=== PATIENT | female | born 1935 | race Caucasian/White ===

== ENCOUNTER 2023-09-16 14:37 | Emergency (ER) | payer MEDICARE, SELFPAY ==
[2023-09-16 14:48] VITALS: BP 161/75; PULSE 87; RESP 16; TEMP 37.1; O2SAT 98
[2023-09-16 14:52] VITALS: BP 161/75; PULSE 87; RESP 16; TEMP 37.1; O2SAT 98
--- NOTE | 2023-09-16 15:47 | ED.GENADULT ---
HPI - General Adult General Chief complaint: Ear Stated complaint: Right ear Source: patient and family Mode of arrival: ambulatory Limitations: dementia History of Present Illness HPI narrative: Patient brought in by daughter for right-sided ear exam. Patient's hearing aid on the right side has been signaling feedback for the past few weeks. Daughter indicates that patient has been scratching the ear canal as well on that side. She had an appointment with an meeting coordinator today to further assess the hearing aid. The meeting coordinator noted that her tympanic membrane looked ?tiny? and advised she have further evaluation. Family contacted patient's primary care provider and it sounds like she was referred to ENT. However they were told that she would not be able to get an appointment until later this fall. Patient denies any drainage from the ear. She denies any worsening hearing loss. No fever, chills, sore throat, otalgia, cough or other infectious symptoms. Related Data Home Medications Medication Instructions Recorded Confirmed amlodipine 10 mg tablet 10 mg PO DAILY 01/14/19 09/16/23 levothyroxine 88 mcg tablet 88 mcg PO DAILY 01/14/19 09/16/23 losartan 50 mg tablet 50 mg PO DAILY 01/14/19 09/16/23 omega 3-pet-ykv-fish oil 1,000 mg 1 cap PO DAILY 01/14/19 01/14/19 (120 mg-180 mg) capsule (Fish Oil) calcium 300 mg-D3 25 mcg-magnesium 2 tablet PO HS 09/16/23 09/16/23 66 mg-K2 37.5 mcg-herbal tablet (Alive Calcium-Vitamin D3-K2) clopidogrel 75 mg tablet 75 mg PO DAILY 09/16/23 09/16/23 docusate sodium 50 mg capsule 100 mg PO HS 09/16/23 09/16/23 (Stool Softener) ezetimibe 10 mg tablet 10 mg PO DAILY 09/16/23 09/16/23 hydrochlorothiazide 12.5 mg tablet 12.5 mg PO DAILY 09/16/23 09/16/23 magnesium citrate,mag oxide 250 mg 500 mg PO HS 09/16/23 09/16/23 capsule memantine 10 mg tablet 10 mg PO BID 09/16/23 09/16/23 psyllium husk 0.4 gram capsule 0.8 g PO BID 09/16/23 09/16/23 (Metamucil) sertraline 50 mg tablet 50 mg PO DAILY 09/16/23 09/16/23 Allergies Allergy/AdvReac Type Severity Reaction Status Date / Time No Known Allergies Allergy Verified 09/16/23 14:55 Review of Systems Review of Systems: CONSTITUTIONAL: Denies fever, chills, or sweats. EYES: Denies visual changes, redness, or discharge. ENT: Reports pruritus in the right ear. Reports right-sided hearing aid signaling feedback. Denies rhinorrhea, congestion, sore throat, or otalgia. CARDIOVASCULAR: Denies chest pain, palpitations, or edema. RESPIRATORY: Denies cough or dyspnea. GASTROINTESTINAL: Denies abdominal pain, nausea, vomiting, or diarrhea. GENITOURINARY: Denies dysuria or hematuria. SKIN: Denies rash or itching. MUSCULOSKELETAL: Denies back pain, joint pain, or myalgia. NEUROLOGIC: Denies headache, numbness, dizziness, or weakness. PSYCHIATRIC: Denies anxiety or depression. [facility] Past Medical History Medical History Arthritis Carpal tunnel syndrome Cataracts, bilateral Colon polyps Glaucoma Hemorrhoids Hypertension Hypothyroidism Kidney stones Melena Postmenopausal Rectal polyp Tonsillectomy planned Urinary tract infection Surgical History Surgical History H/O: hysterectomy History of appendectomy History of carpal tunnel surgery Total knee replacement status Family History Family History Mother Family history non-contributory Social History Social History Social History: Former smoker Smoking status: Former smoker Substance use: never Living arrangements: alone Additional living arrangements comments: Family stays with her in the evening Gender identity (if verbalized by the patient): Female Spiritual care concerns: No Exam Narrative: GENERAL: Well-appear
== END 2023-09-16 15:52 | disposition home or self-care (01) ==
PROVIDERS: Emergency Provider Nurse Practitioner; PCP Internal Medicine
DX: H71.91 Unspecified cholesteatoma, right ear (principal); Z87.891 Personal history of nicotine dependence; M19.90 Unspecified osteoarthritis, unspecified site; H40.9 Unspecified glaucoma; I10 Essential (primary) hypertension; E03.9 Hypothyroidism, unspecified
CPT/HCPCS: 99213; G0463